=== PATIENT | male | born 1980 | race Caucasian/White ===

== ENCOUNTER 2019-01-27 07:35 | Emergency (ER) | payer MEDICAID ==
[~2019-01-27] VITALS: Ht 180.3 cm; Wt 87.0 kg
[2019-01-27 07:39] VITALS: Ht 180.3 cm; Wt 87.0 kg
--- NOTE | 2019-01-27 07:57 | ERD ---
ER Documentation Chief Complaint Chief Complaint feels suididal/homicidal has no plan HPI This is a 38-year-old male who says he is here because he has suicidal and homicidal thoughts. He has no specific plan. Patient admits to meth use about 3 or 4 hours ago. No prior psych admissions. Admits to visual but no auditory hallucinations ROS All systems reviewed and are negative except as per history of present illness. Medications Home Meds Unable to Obtain Active Prescriptions or Reported Meds Allergies Allergies: Coded Allergies: Unknown: Unable to obtain (Unverified , 01/27/19) PMhx/Soc History of Surgery: No Anesthesia Reaction: No Hx Neurological Disorder: No Hx Respiratory Disorders: No Hx Cardiac Disorders: No Hx Psychiatric Problems: Yes (Schizophrenia, Anxiety, Depression) Hx Miscellaneous Medical Probl: Yes (Neuropathy) Hx Alcohol Use: No Hx Substance Use: Yes (amphetamine, heroine) Hx Tobacco Use: No Smoking Status: Never smoker FmHx Family History: No coronary disease Physical Exam Vitals Vital Signs Date Temp Pulse Resp B/P (MAP) Pulse Ox O2 O2 Flow FiO2 Time Delivery Rate 01/28/19 80 18 136/75 96 Room Air 08:37 (95) 01/28/19 71 16 134/76 96 Room Air 06:08 (95) 01/27/19 98.1 76 16 121/76 96 Room Air 17:00 (91) 01/27/19 98.1 75 18 141/75 99 07:39 (97) Physical Exam Const: No acute distress Head: Atraumatic Eyes: Normal Conjunctiva ENT: Normal External Ears, Nose and Mouth. Neck: Full range of motion. No meningismus. Resp: Clear to auscultation bilaterally Cardio: Regular rate and rhythm, no murmurs Abd: Soft, non tender, non distended. Normal bowel sounds Skin: No petechiae or rashes Back: No midline or flank tenderness Ext: No cyanosis, or edema Neur: Awake and alert Psych: Admits to homicidal and suicidal thoughts, agitated Result Diagram: 01/27/19 0801/27/19 08 Results 24 hrs Laboratory Tests Test 01/27/19 08:06 01/27/19 12:55 White Blood Count 13.1 10^3/ul Red Blood Count 4.43 10^6/ul Hemoglobin 13.9 g/dl Hematocrit 40.3 % Mean Corpuscular Volume 91.0 fl Mean Corpuscular Hemoglobin 31.4 pg Mean Corpuscular Hemoglobin Concent 34.5 g/dl Red Cell Distribution Width 12.5 % Platelet Count 260 10^3/UL Mean Platelet Volume 9.9 fl Immature Granulocytes % 0.300 % Neutrophils % 79.5 % Lymphocytes % 9.1 % Monocytes % 10.3 % Eosinophils % 0.5 % Basophils % 0.3 % Nucleated Red Blood Cells % 0.0 /100WBC Immature Granulocytes # 0.040 10^3/ul Neutrophils # 10.4 10^3/ul Lymphocytes # 1.2 10^3/ul Monocytes # 1.4 10^3/ul Eosinophils # 0.1 10^3/ul Basophils # 0.0 10^3/ul Nucleated Red Blood Cells # 0.0 10^3/ul Sodium Level 141 mmol/L Potassium Level 3.4 mmol/L Chloride Level 106 mmol/L Carbon Dioxide Level 27 mmol/L Anion Gap 8 Blood Urea Nitrogen 21 mg/dl Creatinine 0.63 mg/dl Est Glomerular Filtrat Rate mL/min > 60 mL/min Glucose Level 135 mg/dl Calcium Level 9.0 mg/dl Total Bilirubin 0.6 mg/dl Direct Bilirubin 0.00 mg/dl Indirect Bilirubin 0.6 mg/dl Aspartate Amino Transf (AST/SGOT) 131 IU/L Alanine Aminotransferase (ALT/SGPT) 73 IU/L Alkaline Phosphatase 73 IU/L Total Protein 7.0 g/dl Albumin 3.9 g/dl Globulin 3.10 g/dl Albumin/Globulin Ratio 1.25 Salicylates Level < 1.0 mg/dl Acetaminophen Level < 10.0 ug/ml Ethyl Alcohol Level < 10.0 mg/dl Urine Opiates Screen Negative Urine Barbiturates Negative Urine Amphetamines Screen POSITIVE Urine Benzodiazepines Screen Negative Urine Cocaine Screen Negative Urine Cannabinoids Negative Current Medications Medications Dose Sig/Everett Start Time Status Last (Trade) Ordered Route PRN Stop Time Admin Dose Reason Admin Olanzapine 5 mg BID PO 01/27/19 01/27/19 (Zyprexa) 21:00 21:21 Procedures/MDM We will get basic labs and have telemetry psych evaluate him. Will transfer to inpatient psych facility, [id number] Addendum: 01/28/2019 0620: I assumed care at 6 AM. Patient is boarding in the emergency department pending psychiatric placement for high risk psychiatric symptoms. Medical clearance examination was reviewed including lab work. I reviewed the initial psychiatric evaluation from the tele-psychiatrist. As per nursing staff, there were no significant events overnight. Objectively, this is a well-developed well-nourished male who appears to be resting comfortably and quietly in no distress. Vital signs been normal overnight Psychiatrically, patient is currently calm and cooperative. Plan will be to continue observation pending psychiatric placement. 1305: Patient remains stable. He was accepted in transfer to [facility]. Departure Diagnosis: Primary Impression: Suicidal ideation Additional Impression: Homicidal ideation Condition: Stable ELIZABETH SPRING DO January 27, 2019 07:57 MARIAH CHAVEZ January 28, 2019 06:22
--- NOTE | 2019-01-27 16:11 | PSY ---
Date/Time of Note Date/Time of Note DATE: 01/27/19 TIME: 16:05 Psychiatric Subjective Eval Consent Pt consented to telemedicine: Yes Subjective Evaluation Chief Complaint: feels suididal/homicidal has no plan History of present illness 38 yo male presented to ED stating he is suicidal and homicidal. Pt is uncooperative with the eval, refused to speak with this MD. Vy, picking on his skin. Per record, used meth today. Past psychiatric history unknown Medical history Problems Medical Problems: (1) Homicidal ideation Status: Acute (2) Suicidal ideation Status: Acute Allergies: Coded Allergies: Unknown: Unable to obtain (Unverified , 01/27/19) Substance Abuse Substance abuse history: Yes Psychiatric Objective Eval Mental Status Examination: Appearance: Bizarre Eye Contact: None Psychomotor Activity: Other Behavior: Bizarre Speech: Disorganized AFFECT: Guarded Mood: Irritable Though Process: Loose Thought Content: Hallucinations Suicidal: Yes Homicidal: Yes Cognition: Alert Insight: Impared Judgement: Impared Laboratory Results Laboratory Tests Test 01/27/19 08:06 01/27/19 12:55 White Blood Count 13.1 10^3/ul Red Blood Count 4.43 10^6/ul Hemoglobin 13.9 g/dl Hematocrit 40.3 % Mean Corpuscular Volume 91.0 fl Mean Corpuscular Hemoglobin 31.4 pg Mean Corpuscular Hemoglobin Concent 34.5 g/dl Red Cell Distribution Width 12.5 % Platelet Count 260 10^3/UL Mean Platelet Volume 9.9 fl Immature Granulocytes % 0.300 % Neutrophils % 79.5 % Lymphocytes % 9.1 % Monocytes % 10.3 % Eosinophils % 0.5 % Basophils % 0.3 % Nucleated Red Blood Cells % 0.0 /100WBC Immature Granulocytes # 0.040 10^3/ul Neutrophils # 10.4 10^3/ul Lymphocytes # 1.2 10^3/ul Monocytes # 1.4 10^3/ul Eosinophils # 0.1 10^3/ul Basophils # 0.0 10^3/ul Nucleated Red Blood Cells # 0.0 10^3/ul Sodium Level 141 mmol/L Potassium Level 3.4 mmol/L Chloride Level 106 mmol/L Carbon Dioxide Level 27 mmol/L Anion Gap 8 Blood Urea Nitrogen 21 mg/dl Creatinine 0.63 mg/dl Est Glomerular Filtrat Rate mL/min > 60 mL/min Glucose Level 135 mg/dl Calcium Level 9.0 mg/dl Total Bilirubin 0.6 mg/dl Direct Bilirubin 0.00 mg/dl Indirect Bilirubin 0.6 mg/dl Aspartate Amino Transf (AST/SGOT) 131 IU/L Alanine Aminotransferase (ALT/SGPT) 73 IU/L Alkaline Phosphatase 73 IU/L Total Protein 7.0 g/dl Albumin 3.9 g/dl Globulin 3.10 g/dl Albumin/Globulin Ratio 1.25 Salicylates Level < 1.0 mg/dl Acetaminophen Level < 10.0 ug/ml Ethyl Alcohol Level < 10.0 mg/dl Urine Opiates Screen Negative Urine Barbiturates Negative Urine Amphetamines Screen POSITIVE Urine Benzodiazepines Screen Negative Urine Cocaine Screen Negative Urine Cannabinoids Negative Assessment and Plan Assessment/Diagnosis Diagnosis Unspecified psychosis. Recommendation/Plan Medication Management Zyprexa 5 mg Po BID; for agitation: Haldol 10 mg + Benadryl 50 mg + Ativan 2 mg IM prn q 12 hrs Discharge Disposition: Psychiatric inpatient Legal Status: Place involuntary hold ELIZABETH AKHTAR MD January 27, 2019 16:11
[2019-01-27] MEDS: OLANZAPINE 5 MG TAB PO SCH (21:21)
[2019-01-28] MEDS: OLANZAPINE 5 MG TAB PO SCH (08:49)
--- NOTE | 2019-01-28 10:25 | PSY ---
Date/Time of Note Date/Time of Note DATE: 01/28/19 TIME: 10:17 Psychiatric Subjective Eval Consent Pt consented to telemedicine: Yes Subjective Evaluation Patient location: emergency Chief Complaint: feels suididal/homicidal has no plan History of present illness 38 yo homeless male with hx psychosis and meth use presented to ED agitated, made suicidal and homicidal statements. This MD attempted to evaluate the pt yesterday but he was agitated and uncooperative. TOday the pt is cooperative but guarded and disorganized. He says he is here because he was given wrong medication (in the ED). He says he needs to "get clearance". Then asked where he will gor from ED he says he will got to stay "in the inpatient and will go looking for a job. He is not monie to state how he usually supports himself. He did not answer then asked about si or hi and goes on tangents He appears to be internally preoccupied. He is irritable. Past psychiatric history prior inpt Hospitalization: yes Medical history Problems Medical Problems: (1) Homicidal ideation Status: Acute (2) Suicidal ideation Status: Acute Allergies: Coded Allergies: Unknown: Unable to obtain (Unverified , 01/27/19) Substance Abuse Substance abuse history: Yes Prior substance abuse treatmen: Yes Social History Marital status: single DPA/Conservatorship: No Occupation/Skilled Nursing: unemployed, homeless Psychiatric Objective Eval Review of Systems: Review of Systems: Not Applicable Mental Status Examination: Appearance: Disheveled Eye Contact: Fair Psychomotor Activity: Other Behavior: Guarded Speech: Disorganized AFFECT: Guarded Mood: Irritable Though Process: Tangential Thought Content: Delusions On 72 hour hold: Yes Orientation: x3 Cognition: Alert Insight: Impared Judgement: Impared Laboratory Results Laboratory Tests Test 01/27/19 08:06 01/27/19 12:55 White Blood Count 13.1 10^3/ul Red Blood Count 4.43 10^6/ul Hemoglobin 13.9 g/dl Hematocrit 40.3 % Mean Corpuscular Volume 91.0 fl Mean Corpuscular Hemoglobin 31.4 pg Mean Corpuscular Hemoglobin Concent 34.5 g/dl Red Cell Distribution Width 12.5 % Platelet Count 260 10^3/UL Mean Platelet Volume 9.9 fl Immature Granulocytes % 0.300 % Neutrophils % 79.5 % Lymphocytes % 9.1 % Monocytes % 10.3 % Eosinophils % 0.5 % Basophils % 0.3 % Nucleated Red Blood Cells % 0.0 /100WBC Immature Granulocytes # 0.040 10^3/ul Neutrophils # 10.4 10^3/ul Lymphocytes # 1.2 10^3/ul Monocytes # 1.4 10^3/ul Eosinophils # 0.1 10^3/ul Basophils # 0.0 10^3/ul Nucleated Red Blood Cells # 0.0 10^3/ul Sodium Level 141 mmol/L Potassium Level 3.4 mmol/L Chloride Level 106 mmol/L Carbon Dioxide Level 27 mmol/L Anion Gap 8 Blood Urea Nitrogen 21 mg/dl Creatinine 0.63 mg/dl Est Glomerular Filtrat Rate mL/min > 60 mL/min Glucose Level 135 mg/dl Calcium Level 9.0 mg/dl Total Bilirubin 0.6 mg/dl Direct Bilirubin 0.00 mg/dl Indirect Bilirubin 0.6 mg/dl Aspartate Amino Transf (AST/SGOT) 131 IU/L Alanine Aminotransferase (ALT/SGPT) 73 IU/L Alkaline Phosphatase 73 IU/L Total Protein 7.0 g/dl Albumin 3.9 g/dl Globulin 3.10 g/dl Albumin/Globulin Ratio 1.25 Salicylates Level < 1.0 mg/dl Acetaminophen Level < 10.0 ug/ml Ethyl Alcohol Level < 10.0 mg/dl Urine Opiates Screen Negative Urine Barbiturates Negative Urine Amphetamines Screen POSITIVE Urine Benzodiazepines Screen Negative Urine Cocaine Screen Negative Urine Cannabinoids Negative Assessment and Plan Assessment/Diagnosis Diagnosis Unspecified psychosis. Amphetamine type substance use disorder. Recommendation/Plan Medication Management Zyprexa 5 mg Po BID; Depakote 500 mg PO BID; for agitation: Haldol 10 mg + Ativan 2 mg + Benadryl 50 mg PRN IM q 12 hrs agitation Multiple antipsychotics: Yes Discharge Disposition: Psychiatric inpatient Legal Status: Continue involuntary hold ELIZABETH AKHTAR MD January 28, 2019 10:25
[2019-01-28 14:22] VITALS: BP 140/100; PULSE 88; RESP 18
== END 2019-01-28 14:31 ==
LOC: E/R 07:35
DX: R45.851 Suicidal ideations (principal); R45.850 Homicidal ideations; R40.2142 Coma scale, eyes open, spontaneous, at arrival to emergency department; R40.2252 Coma scale, best verbal response, oriented, at arrival to emergency department; R40.2362 Coma scale, best motor response, obeys commands, at arrival to emergency department
CPT/HCPCS: 80053; 80307; 85025; Z7610; 36415; 99285

== ENCOUNTER 2019-05-08 09:19 | Emergency (ER) | payer MEDICAID ==
[~2019-05-08] VITALS: Ht 167.6 cm; Wt 80.0 kg
[~2019-05-08 09:19] MED LIST: OLAN10TA7 PO
[2019-05-08 09:24] VITALS: Ht 167.6 cm; Wt 80.0 kg
[2019-05-08] MEDS ORDERED: OLANZAPINE (ODT) 5 MG TAB ODT ONE (12:30)
[2019-05-08] MEDS ORDERED: DIPHENHYDRAMINE 50 MG INJ IM ONE (12:30)
[2019-05-08] MEDS ORDERED: LORAZEPAM 1 MG TAB PO ONE ×2 (12:30→13:00)
[2019-05-08] MEDS ORDERED: LORAZEPAM 2 MG INJ IM ONE (12:30)
[2019-05-08] MEDS ORDERED: HALOPERIDOL 5 MG INJ IM ONE (12:30)
[2019-05-08] MEDS ORDERED: OLANZAPINE (ODT) 5 MG TAB ODT STA (12:57)
[2019-05-08 16:51] VITALS: BP 132/86; PULSE 82; RESP 16
== END 2019-05-08 17:00 | disposition home or self-care (01) ==
LOC: E/R 09:19
DX: F23 Brief psychotic disorder (principal); R40.2142 Coma scale, eyes open, spontaneous, at arrival to emergency department; R40.2242 Coma scale, best verbal response, confused conversation, at arrival to emergency department; R40.2362 Coma scale, best motor response, obeys commands, at arrival to emergency department
CPT/HCPCS: 36415; 80053; 80307; 85025; J1200; J1630; J2060; Z7502; Z7610; 99285